=== PATIENT | female | born 1965 | race Caucasian/White ===

== ENCOUNTER → 2016-11-01 | Outpatient (CLI) | payer OTHER ==
[~2016-11-01] MED LIST: BUSPIRONE HCL15 MG PO; BUSPIRONE HCL30 MG PO; HYDROCHLOROTHIA25 MG PO; HYDROCHLOROTHIA50 MG PO; NEURONTIN 400400 MG PO; PERCOCET 10-321 EACH PO; PROTONIX40 MG PO; VITAMIN D50000 UNIT PO; WELLBUTRIN 75 M75 MG PO; XARELTO10 MG PO; ZOLOFT100 MG PO
== END ==
LOC: MAMO 10-31 14:40
DX: Z12.31 Encounter for screening mammogram for malignant neoplasm of breast (principal)
CPT/HCPCS: G0202

== ENCOUNTER → 2016-11-21 | Outpatient (CLI) | payer OTHER ==
[2016-11-21 11:15] LABS: HEMOGLOBIN 11.7 gm/dl (12.3-15.3); RED BLOOD COUNT 4.1 M/UL (4.00-5.10); WHITE BLOOD COUNT 5.3 K/UL (4.5-11.0)
[2016-11-21 11:31] LABS: BUN/CREATININE RATIO 18 (0-10)
== END ==
LOC: OPSV2 10:00 → EDSTATUS 10:00 → OPSV2 10:05
PROVIDERS: Orthopaedic Surgery
DX: Z01.812 Encounter for preprocedural laboratory examination (principal); Z01.810 Encounter for preprocedural cardiovascular examination; K21.9 Gastro-esophageal reflux disease without esophagitis; M17.11 Unilateral primary osteoarthritis, right knee; Z88.3 Allergy status to other anti-infective agents
CPT/HCPCS: 36415; 80048; 81001; 82040; 84155; 85025; 86140; 87081; 93005

== ENCOUNTER 2016-12-05 06:01 | Inpatient (IN) | payer OTHER ==
[~2016-12-05] VITALS: Ht 170.2 cm; Wt 109.8 kg
[2016-12-05] MEDS ORDERED: ZOLOFT100 MG PO ×2 (07:31→07:36)
[2016-12-05] MEDS ORDERED: PROTONIX40 MG PO (07:33)
[2016-12-05] MEDS ORDERED: HYDROCHLOROTHIA25 MG PO (07:34)
[2016-12-05] MEDS ORDERED: HYDROCHLOROTHIA50 MG PO (07:36)
[2016-12-05] MEDS ORDERED: BUSPIRONE HCL30 MG PO (07:38)
[2016-12-05] MEDS ORDERED: BUSPIRONE HCL15 MG PO ×2 (07:39)
[2016-12-05] MEDS ORDERED: NEURONTIN 400400 MG PO (07:40)
[2016-12-05] MEDS ORDERED: VITAMIN D50000 UNIT PO (07:40)
[2016-12-06 06:28] LABS: HEMOGLOBIN 9.3 gm/dl (12.3-15.3); RED BLOOD COUNT 3.27 M/UL (4.00-5.10); WHITE BLOOD COUNT 8.3 K/UL (4.5-11.0)
[2016-12-06 06:47] LABS: BUN/CREATININE RATIO 15 (0-10)
[2016-12-07] MEDS ORDERED: WELLBUTRIN 75 M75 MG PO (02:09)
[2016-12-07 06:20] LABS: HEMOGLOBIN 9.5 gm/dl (12.3-15.3); RED BLOOD COUNT 3.3 M/UL (4.00-5.10)
[2016-12-07 06:51] LABS: BUN/CREATININE RATIO 8 (0-10)
[2016-12-07] MEDS ORDERED: XARELTO10 MG PO (10:20)
[2016-12-07] MEDS ORDERED: PERCOCET 10-321 EACH PO (10:22)
== END 2016-12-07 14:59 | disposition home health service (06) | DRG 470 ==
LOC: ZOBSOF 06:01 → M/S 06:01
PROVIDERS: ADMIT Orthopaedic Surgery
PROC: 0SRC0J9 Replacement of Right Knee Joint with Synthetic Substitute, Cemented, Open Approach (ICD-10-PCS; principal; 2016-12-05 08:15)
DX: M17.0 Bilateral primary osteoarthritis of knee (principal); D62 Acute posthemorrhagic anemia; M21.961 Unspecified acquired deformity of right lower leg; Z51.89 Encounter for other specified aftercare; K21.9 Gastro-esophageal reflux disease without esophagitis; F41.9 Anxiety disorder, unspecified; F32.9 Major depressive disorder, single episode, unspecified; M79.7 Fibromyalgia; M25.561 Pain in right knee; Z98.84 Bariatric surgery status; Z88.1 Allergy status to other antibiotic agents; Z88.5 Allergy status to narcotic agent; Z79.899 Other long term (current) drug therapy; Z90.49 Acquired absence of other specified parts of digestive tract; Z83.3 Family history of diabetes mellitus; Z82.49 Family history of ischemic heart disease and other diseases of the circulatory system
CPT/HCPCS: 36415; 73560; 80048; 85025; 86850; 86900; 86901; 97116; 97530; 97535; J0690; J2250; J2270; J3010; J3370; J7030; J7050; J7120; Q0162

== ENCOUNTER → 2020-08-18 | Outpatient (CLI) | payer MEDICARE, OTHER ==
[~2020-08-18] MED LIST changes: +CORTIZONE-1057 GM TP; +CYCLOBENZAPRINE10 MG PO; +CYCLOBENZAPRINE5 MG PO; +MULTIVITAMINS1 EAC1 PO; +NORCO 7.5-3251 EACH PO; +TYLENOL 500 MG500 MG PO
== END ==
LOC: MAMO 14:25
DX: Z12.31 Encounter for screening mammogram for malignant neoplasm of breast (principal)
CPT/HCPCS: 77063; 77067

== ENCOUNTER → 2020-10-13 | Outpatient (CLI) | payer MEDICARE, OTHER | LOC: EXRD 14:29 | DX: R07.81 Pleurodynia (principal) | CPT/HCPCS: 71101 ==

== ENCOUNTER → 2020-12-16 | Outpatient (CLI) | payer MEDICARE, OTHER | LOC: EXRD 14:19 | DX: M25.561 Pain in right knee (principal) | CPT/HCPCS: 73564 ==

== ENCOUNTER → 2021-11-30 | Outpatient (CLI) | payer MEDICARE, OTHER ==
[2021-11-30 16:17] LABS: HEMOGLOBIN 13.2 gm/dl (12.3-15.3); RED BLOOD COUNT 4.7 M/UL (4.00-5.10); WHITE BLOOD COUNT 5.3 K/UL (4.5-11.0)
== END ==
LOC: MAMO 14:30
PROVIDERS: Family Medicine
DX: Z12.31 Encounter for screening mammogram for malignant neoplasm of breast (principal); E55.9 Vitamin D deficiency, unspecified; E78.5 Hyperlipidemia, unspecified; K21.9 Gastro-esophageal reflux disease without esophagitis; Z79.899 Other long term (current) drug therapy
CPT/HCPCS: 36415; 77063; 77067; 80053; 80061; 82607; 83735; 85027